=== PATIENT | female | born 1980 | race Two or more races ===

== ENCOUNTER 2022-02-28 19:47 | Emergency (ER) | payer SELFPAY ==
[2022-02-28 20:01] VITALS: BP 140/93; RESP 19; BMI 31.1
[2022-02-28] MEDS ORDERED: ACETAMINOPHEN 500 MG TABLET (FP) PO ONE (20:26)
[2022-02-28 23:04] VITALS: PULSE 89; TEMP 99.8
== END 2022-02-28 23:28 | disposition home or self-care (01) ==
LOC: JER 19:47
DX: U07.1 COVID-19 (principal); R50.9 Fever, unspecified
CPT/HCPCS: 0241U-QW; 99283-25

== ENCOUNTER 2023-09-29 10:43 | Emergency (ER) | payer OTHER ==
[2023-09-29 10:59] VITALS: BP 124/70; PULSE 85; RESP 16; TEMP 98.6; BMI 19.3
[2023-09-29 11:55] LABS: VENOUS BASE EXCESS -3.8 mmol/L (-2-2); VENOUS O2 SATURATION 66.1 % (70-80); VENOUS PH 7.364 (7.310-7.410)
[2023-09-29 12:01] LABS: BASO % 0.7 % (0-2.0); EOS % 0.2 % (0-4.5); HEMATOCRIT 27.9 % (32.4-45.2); LYMPH % 8.7 % (8-40); MCH 17.1 pg (25.7-33.7); MCHC 28.7 g/dl (32.0-36.0); MEAN CELL VOLUME 59.7 fl (80-96); MEAN PLT VOLUME 8.1 fl (7.5-11.1); MONO % 3.4 % (3.8-10.2); PLATELET COUNT 492 10^3/uL (134-434); RBC 4.67 M/mm3 (3.60-5.2); RDW 18.7 % (11.6-15.6); WHITE BLOOD COUNT 11.1 K/mm3 (4.0-10.0)
[2023-09-29 12:15] LABS: POTASSIUM 3.6 mmol/L (3.5-5.1)
[2023-09-29 12:17] LABS: ALBUMIN 3.7 g/dl (3.4-5.0); BLOOD UREA NITROGEN 11.8 mg/dL (7-18); CALCIUM 8.7 mg/dL (8.5-10.1); MAGNESIUM 2.3 mg/dL (1.8-2.4)
[2023-09-29 12:20] LABS: ANISOCYTOSIS 3+; CREATININE 0.5 mg/dL (0.55-1.3); MACROCYTOSIS 0
[2023-09-29 12:22] LABS: BILIRUBIN,TOTAL 0.2 mg/dL (0.2-1); TOT PROT 7.9 g/dl (6.4-8.2)
[2023-09-29] MEDS ORDERED: ONDANSETRON 4 MG/2 ML VIAL ONE (12:25)
[2023-09-29] MEDS: ONDANSETRON 4 MG/2 ML VIAL IVPUSH ONE (12:31)
[2023-09-29] MEDS: LACTATED RINGERS SOLUTION 1000 ML INFUS.BAG IV ONE (12:31)
== END 2023-09-29 13:46 | disposition home or self-care (01) ==
LOC: JER 10:43
PROC: 3E033GC Introduction of Other Therapeutic Substance into Peripheral Vein, Percutaneous Approach (ICD-10-PCS; principal; 2023-09-29)
DX: R00.2 Palpitations (principal); R06.02 Shortness of breath; R42 Dizziness and giddiness; R11.2 Nausea with vomiting, unspecified; R07.9 Chest pain, unspecified
CPT/HCPCS: 36415; 71045-TC-FY; 80053; 82803; 83735; 84439; 84443; 84484; 84703; 85025; 86850; 86900; 86901; 93005; 93010; 99285-25